=== PATIENT | female | born 1945 | race Caucasian/White ===

== ENCOUNTER → 2020-04-18 09:50 | Outpatient (BNVA) | payer MEDICARE, OTHER, SELFPAY | PROVIDERS: PCP Nurse Practitioner Family; Referring Provider Nurse Practitioner Family; Visit Provider Psychiatry & Neurology Neurology | DX: R26.89 Other abnormalities of gait and mobility (principal); R42 Dizziness and giddiness; G25.81 Restless legs syndrome; I73.9 Peripheral vascular disease, unspecified; I10 Essential (primary) hypertension | CPT/HCPCS: 99205 ==

== ENCOUNTER 2023-10-07 05:43 | Outpatient (RCR) | payer MEDICARE, SELFPAY ==
[2023-10-07] MEDS: Normal Saline Flush 10 ML SYR IVP (08:29)
[2023-10-07 08:49] LABS: Abs Immature Grans 0.02 10^3/uL (0.0-0.06); Absolute Basophil Count 0.03 10^3/uL (0.0-0.2); Absolute Eosinophil Count 0.35 10^3/uL (0.0-0.7); Absolute Lymphocyte Count 0.74 10^3/uL (1.2-3.4); Absolute Monocyte Count 0.56 10^3/uL (0.1-0.8); Absolute Neutrophil Count 2.42 10^3/uL (1.2-6.7); Basophils % 0.7; Eosinophils % 8.5; HCT 32.5 % (36.0-46.0); Immature Grans % 0.5; MCH 33.7 pg (27.0-33.0); MCHC 33.8 % (32.0-36.0); MCV 100 fL (80-95); Monocytes % 13.6; Neutrophils % 58.7; Platelet Count 178 10^3/uL (130-400); RBC 3.26 10^6/uL (3.93-5.22); RDW 13.1 % (11.7-14.6); RDW-SD 46.8 fL; WBC 4.12 10^3/uL (4.4-10.8)
[2023-10-07 09:19] LABS: ALT 28 U/L (14-59); AST 21 U/L (15-37); Albumin 3.4 g/dL (3.4-5.0); Alkaline Phosphatase 94 U/L (46-116); Anion Gap 8.4 mmol/L (3-11); BUN 22 mg/dL (7-18); Bilirubin, Total 0.3 mg/dL (0.2-1.0); CO2 27.6 mmol/L (21.0-32.0); CREATININE 0.7 mg/dL (0.55-1.02); Calcium 8.8 mg/dL (8.5-10.1); Chloride 105 mmol/L (98-107); Estimated GFR 87.92 (mL/min/1.73m2); FREE T4 0.99 ng/dL (0.76-1.46); Glucose 75 mg/dL (74-106); Potassium 3.7 mmol/L (3.5-5.1); Sodium 141 mmol/L (136-145); TSH 0.95 uIU/Ml (0.36-3.74); Total Protein 6.9 g/dL (6.4-8.2)
== END 2023-10-22 23:59 | disposition home or self-care (01) ==
LOC: INF 05:43
PROVIDERS: PCP Nurse Practitioner Family; Visit Provider Internal Medicine Medical Oncology
DX: C79.51 Secondary malignant neoplasm of bone (principal); Z79.899 Other long term (current) drug therapy; Z45.2 Encounter for adjustment and management of vascular access device
CPT/HCPCS: 36591; 80053; 83735; 84439; 84443; 85025